=== PATIENT | female | born 1960 | race Caucasian/White ===

== ENCOUNTER 2016-11-26 08:22 | Day surgery (SDC) | payer OTHER ==
[~2016-11-26 08:22] MED LIST: ceFAZolin 1 GM VIAL ONE
[2016-11-26] MEDS ORDERED: SCOPOLAMINE PATCH TOP ONE (08:52)
[2016-11-26] MEDS ORDERED: LACTATED RINGERS 1,000 ML IV ONE ×2 (08:55→10:50)
[2016-11-26] MEDS ORDERED: PROPOFOL 200 MG/20 ML VIAL IVP ONE (10:00)
[2016-11-26] MEDS ORDERED: fentaNYL 250 MCG/5 ML VIAL IVP ONE (10:00)
[2016-11-26] MEDS ORDERED: LIDOCAINE-PF 2% 10 ML AMP SUBQ ONE (10:00)
[2016-11-26] MEDS ORDERED: ACETAMINOPHEN 1,000 MG/100 ML VIAL IV ONE (10:00)
[2016-11-26] MEDS ORDERED: GLYCOPYRROLATE 1 MG/5 ML VIAL IVP ONE (10:00)
[2016-11-26] MEDS ORDERED: DEXAMETHASONE 4 MG/ML VIAL IVP ONE (10:00)
[2016-11-26] MEDS ORDERED: NEOSTIGMINE 1 MG/1 ML 10 ML MDV IVP ONE (10:00)
[2016-11-26] MEDS ORDERED: ROCURONIUM 50 MG/5 ML VIAL IVP ONE (10:00)
[2016-11-26] MEDS ORDERED: ONDANSETRON 4 MG/2 ML VIAL IVP ONE (10:00)
[2016-11-26] MEDS ORDERED: MIDAZOLAM 2 MG/2 ML VIAL IVP ONE (10:00)
[2016-11-26] MEDS ORDERED: BUPIVACAINE 0.25%-EPI 1:200000 PF 30 ML VIAL SUBQ ONE ×2 (10:24)
[2016-11-26] MEDS ORDERED: LIDOCAINE 1% 50 ML MDV SUBQ ONE ×2 (10:24)
[2016-11-26] MEDS ORDERED: KETOROLAC 15 MG/ML VIAL ONE (11:09)
[2016-11-26] MEDS ORDERED: MEPERIDINE 50 MG/ML SYRINGE ONE (11:30)
== END 2016-11-26 08:23 | disposition home or self-care (01) ==
PROC: 06BY0ZC Excision of Hemorrhoidal Plexus, Open Approach (ICD-10-PCS; 2016-11-26)
PROC: 06LY0CC Occlusion of Hemorrhoidal Plexus with Extraluminal Device, Open Approach (ICD-10-PCS; principal; 2016-11-26 09:45)
DX: K64.4 Residual hemorrhoidal skin tags (principal); K64.8 Other hemorrhoids; Z88.5 Allergy status to narcotic agent
CPT/HCPCS: 46260; J3490; J7120

== ENCOUNTER 2016-12-28 10:31 | Outpatient (CLI) | payer OTHER | END 2016-12-28 10:32 | disposition home or self-care (01) | DX: M50.322 Other cervical disc degeneration at C5-C6 level (principal); M51.34 Other intervertebral disc degeneration, thoracic region; M51.36 Other intervertebral disc degeneration, lumbar region; M47.896 Other spondylosis, lumbar region; M41.86 Other forms of scoliosis, lumbar region ==

== ENCOUNTER 2017-05-13 10:09 | Outpatient (CLI) | payer OTHER ==
--- NOTE | 2017-05-13 12:57 | XRAY Report ---
THREE-VIEW LEFT WRIST: 05/13/2017 CLINICAL INDICATION: Pain after trauma. FINDINGS: AP, lateral, oblique views of the left wrist demonstrate a mildly displaced distal radial fracture, without definite intraarticular extension. No ulnar fracture is seen. Mild osteoarthritic changes are present. No foreign body is seen in the soft tissues. IMPRESSION: MILDLY DISPLACED DISTAL RADIAL FRACTURE, WITHOUT DEFINITE INTRAARTICULAR EXTENSION. JOB #: [id number] EXT JOB #:[id number]
== END 2017-05-13 10:10 | disposition home or self-care (01) ==
LOC: DI.S 10:09
PROVIDERS: ATTEND Nurse Practitioner Family
DX: S52.502A Unspecified fracture of the lower end of left radius, initial encounter for closed fracture (principal)

== ENCOUNTER 2017-06-17 08:46 | Outpatient (CLI) | payer OTHER ==
--- NOTE | 2017-06-18 11:15 | DEXA Report ---
DEXA SCAN: 06/17/2017 CLINICAL INDICATION: Wrist fracture, family history of osteopenia. TECHNIQUE: Dual energy x-ray absorptiometry (DXA) was performed on a [employer] system. Regions measured are the AP spine, femoral neck, and, if needed, forearm. COMPARISON: None. In accordance with the International Society for Clinical Densitometry (ISCD) guidelines, data from previous exams may be reanalyzed using current recommendations and techniques. This is done to allow a more accurate basis for comparison with the current study. FINDINGS The data for the lumbar spine is as follows: REGION BMD (g/cm/cm) T-SCORE Z-SCORE L1 0.816 -2.6 -1.9 L2 0.925 -2.3 -1.6 L3 1.014 -1.5 -0.8 L4 1.010 -1.6 -0.9 TOTAL 0.945 -2.0 -1.2 NOTE: All evaluable vertebrae are used for classification. The data for the hip is as follows: REGION BMD (g/cm/cm) T-SCORE Z-SCORE Neck 0.818 -1.6 -0.6 TOTAL 0.778 -1.8 -1.2 NOTE: The femoral neck or total proximal femur, whichever is lowest, is used for classification. IMPRESSION: THE WHO CLASSIFICATION BASED ON THE INTERNATIONAL REFERENCE STANDARD IS OSTEOPENIA. THE FRACTURE RISK IS INCREASED. RECOMMENDATION: Patients with diagnosis of osteoporosis or osteopenia should have regular bone mineral density assessment. For those eligible for Medicare, routine testing is allowed once every 2 years. Testing frequency can be increased for patients who have rapidly progressing disease or for those who are receiving medical therapy to restore bone mass. COMMENT: World Health Organization (WHO) definitions for osteoporosis and osteopenia: NORMAL BMD: T-score at -1.0 or higher, fracture risk is low. OSTEOPENIA BMD: T-score between -1.0 and -2.5, fracture risk is increased. OSTEOPOROSIS BMD: T-score at -2.5 or lower, fracture risk high. National Osteoporosis Foundation recommends: 1. Obtain adequate dietary calcium (at least 1200 mg per day) and vitamin D (400 -800 international units per day). 2. Participate, as appropriate, in regular weightbearing and muscle- strengthening exercise. 3. Avoid tobacco use and reduce alcohol and caffeine intake. 4. For more detailed information see the website at www.NOF.org. MTDD
== END 2017-06-17 08:47 | disposition home or self-care (01) ==
LOC: DI 08:46
PROVIDERS: ATTEND Nurse Practitioner Family
DX: M85.89 Other specified disorders of bone density and structure, multiple sites (principal); Z82.62 Family history of osteoporosis
CPT/HCPCS: 77080

== ENCOUNTER 2018-09-08 09:29 | Outpatient (CLI) | payer OTHER ==
--- NOTE | 2018-09-09 10:02 | Mammography Report ---
Reason: ANNUAL SCREENING Procedure Date: 09/08/2018 Accession Number: [id number] / [id number] Procedure: ELEN - Screening Mammo w/Clyde CPT Code: FULL RESULT: EXAM: Screening Mammo w/Clyde DATE: 09/08/2018 10:13 AM CLINICAL HISTORY: Screening encounter. History of late childbearing. Family history of breast cancer in a sister at the age of 49 and a cousin at the age of 50. TECHNIQUE: Bilateral CC, laterally exaggerated CC, MLO views were obtained. COMPARISON: 04/27/2014. FINDINGS: The breasts demonstrate heterogeneously dense fibroglandular parenchyma bilaterally. No suspicious masses, clustered microcalcifications, or regions of architectural distortion are identified. IMPRESSION: Negative examination RECOMMENDATION: Routine annual screening unless otherwise clinically indicated. BIRADS CATEGORY 1: Negative STANDARD QUALIFYING STATEMENTS: 1. This examination was not reviewed with the aid of Computer-Aided Detection (CAD). 2. A negative or benign imaging report should not preclude biopsy if clinically suspicious findings are present. 3. Dense breasts may obscure an underlying neoplasm. 4. This examination was reviewed with the aid of 3D breast imaging (tomosynthesis).
== END 2018-09-08 09:30 | disposition home or self-care (01) ==
LOC: DI 09:29
DX: Z12.31 Encounter for screening mammogram for malignant neoplasm of breast (principal); Z80.3 Family history of malignant neoplasm of breast
CPT/HCPCS: 77063; 77067

== ENCOUNTER 2019-09-04 09:15 | Outpatient (CLI) | payer OTHER ==
--- NOTE | 2019-09-04 11:30 | MRI Report ---
Reason: INTERNAL DERANGEMENT OF RT KNEE Procedure Date: 09/04/2019 Accession Number: [id number] / [id number] Procedure: MRI - Knee RT W/O CPT Code: Final Report FULL RESULT: EXAM: RIGHT KNEE MRI WITHOUT CONTRAST EXAM DATE: 09/04/2019 10:02 AM. CLINICAL HISTORY: INTERNAL DERANGEMENT OF RT KNEE. COMPARISON: None. TECHNIQUE: Multiplanar, multisequence T1-weighted and fluid-sensitive sequences of the knee without contrast. Other: None. FINDINGS: Bones and articular cartilage: There is an approximately 1.5 x 1.5 x 0.5 cm multilobular or multiseptated, T2 hyperintense, T1 hypointense, subcortical lesion at the anteromedial aspect of the medial tibial plateau. There is a similar-appearing, approximately 4.1 x 0.4 x 3 cm, extraosseous lesion along the anteromedial and anterior margin of the medial tibial plateau. Grade II-III chondromalacia at the medial tibial plateau. Grade II chondromalacia at the medial femoral condyle. Focal grade III chondromalacia of the medial ridge of the patella. Grade III chondromalacia of the femoral trochlea. No patellar subluxation. There is an approximately 1.3 x 0.4 x 1 cm lobular, T2 hyperintense, T1 hypointense subcortical lesion at the posterior aspect of the tibial plateau. No acute fracture. Medial Meniscus: Free edge fraying is present. No discrete tear. Lateral Meniscus: The lateral meniscus is intact. Cruciate Ligaments: The anterior and posterior cruciate ligaments are intact. Collateral Ligaments: The medial collateral and lateral collateral ligamentous structures are intact. Tendons: Small ganglion at the distal end of the semimembranosus tendon. The popliteus, quadriceps, patella tendon are unremarkable. Musculature: No edema or fatty atrophy. Other: No effusion. Tiny popliteal cyst. No loose bodies. The medial and lateral retinacula are intact. The subcutaneous tissues and fat pads are unremarkable. IMPRESSION: 1. 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 2. Multilobular or multiseptated subcortical lesion at the anterior medial aspect of the medial tibial plateau. There is a similar-appearing extraosseous lesion along the anteromedial and anterior margins of the medial tibial plateau. These lesions most likely represent ganglions. A vascular lesion or a mucinous lesion are thought to be less likely. If warranted, consider further evaluation with a follow-up MRI with intravenous contrast. 3. A 1.3 x 0.4 x 1 cm lobular subcortical lesion at the posterior aspect of the tibial plateau which most likely represents a ganglion. 4. Free edge fraying at the medial meniscus. 5. Small ganglion at the distal end of the semimembranosus tendon. 6. Tiny popliteal cyst. 7. No ligament tear. RADIA
== END 2019-09-04 09:16 | disposition home or self-care (01) ==
LOC: DI 09:15
PROVIDERS: ATTEND Orthopaedic Surgery
DX: M94.261 Chondromalacia, right knee (principal); M89.9 Disorder of bone, unspecified; M67.461 Ganglion, right knee; M71.21 Synovial cyst of popliteal space [Baker], right knee

== ENCOUNTER 2020-05-23 15:09 | Outpatient (CLI) | payer OTHER ==
--- NOTE | 2020-05-23 17:05 | XRAY Report ---
PROCEDURE: Knee 3 View RT INDICATIONS: PAIN IN RT KNEE TECHNIQUE: 3 views of the right knee(s) were acquired. COMPARISON: None. FINDINGS: Bones: No fractures or dislocations. No suspicious bony lesions. Trace medial compartment narrowin g. No erosions. Soft tissues: No joint effusion. No suspicious soft tissue calcifications. IMPRESSION: Trace early degenerative changes in the medial compartment suggestive early osteoarthrit is. Reviewed by: Leola Michaels MD on 05/23/2020 5:04 PM PDT Approved by: Leola Michaels MD on 05/23/2020 5:04 PM PDT Station ID: [id number]
--- NOTE | 2020-05-23 17:06 | XRAY Report ---
PROCEDURE: Lumbar Spine 2 View INDICATIONS: RT BACK PAIN TECHNIQUE: 3 views of the lumbar spine were acquired. COMPARISON: None. FINDINGS: Bones: 5 [id number] vertebrae are present. There is trace retrolisthesis of L1 on L2, L2 on L3 . There is severe disc space narrowing at L3-4, L5-S1, mild L1-L2, L4-5. Moderate to severe foraminal narrowing is present at L5-S1, moderate L3-4, L4-5. No vertebral body compression fractures. No kayleigh picious bony lesions. Soft tissues: Overlying bowel gas pattern is normal. No suspicious soft tissue calcifications. IMPRESSION: Degenerative changes most notable at L5-S1. Reviewed by: Leola Michaels MD on 05/23/2020 5:05 PM PDT Approved by: Leola Michaels MD on 05/23/2020 5:05 PM PDT Station ID: [id number]
--- NOTE | 2020-05-23 17:08 | XRAY Report ---
PROCEDURE: Hip w/Pelvis 2-3V RT INDICATIONS: RT HIP PAIN TECHNIQUE: AP pelvis with lateral view(s) of the bilateral hip(s). COMPARISON: None. FINDINGS: Bones: No fractures or dislocations. Pelvic ring appears intact. No suspicious bony lesions. Minimal early degenerative changes. Soft tissues: The visualized bowel gas pattern is normal. No suspicious soft tissue calcifications. IMPRESSION: No acute osseous abnormality. Reviewed by: Leola Michaels MD on 05/23/2020 5:06 PM PDT Approved by: Leola Michaels MD on 05/23/2020 5:06 PM PDT Station ID: [id number]
== END 2020-05-23 15:10 | disposition home or self-care (01) ==
LOC: DI.S 15:09
PROVIDERS: ATTEND Nurse Practitioner Family
DX: M47.817 Spondylosis without myelopathy or radiculopathy, lumbosacral region (principal); M17.11 Unilateral primary osteoarthritis, right knee; M25.551 Pain in right hip
CPT/HCPCS: 72100

== ENCOUNTER 2020-07-05 08:15 | Outpatient (CLI) | payer OTHER ==
--- NOTE | 2020-07-05 12:52 | MRI Report ---
PROCEDURE: Knee RT W/O INDICATIONS: TEAR LATERAL MENISCUS RT TECHNIQUE: Noncontrast sagittal PD fast spin echo and T2 fast spin echo with fat saturation, sagittal 3-D gradie nt sequence with fat saturation; coronal T1 spin echo and PD fast spin echo with fat saturation, and axial PD fast spin echo with fat saturation through the knee. COMPARISON: Plain films dated 05.23.20 FINDINGS: Image quality: Excellent. Menisci: Mildly displaced radial tear of the posterior horn medial meniscus at the meniscal root liga ment insertion site. Lateral meniscus intact. Cruciate ligaments: The anterior and posterior cruciat e ligaments appear intact. Medial structures: The medial collateral ligament appears intact. Visualized portions of the pes an serinus tendons appear normal. Small amount of medial bursal fluid. Lateral structures: The lateral collateral ligament demonstrates mild T2 signal elevation at the fem oral origin. The long and short heads of the biceps femoris tendon appear intact. The popliteus tend on appears normal. Iliotibial band appears normal. Anterior structures: The quadriceps and patellar tendons appear intact. Patellar alignment is kathleen l. No femoral trochlear dysplasia or ventral trochlear prominence. No edema in the infrapatellar fa t pad. Bones and cartilage: No bone marrow contusions or fractures. Mild degenerative marrow edema within t he anterior weightbearing aspects of the medial tibial plateau. Moderate articular cartilage loss dif fusely overlies the weightbearing aspects of the medial femoral condyle and medial tibial plateau. Mi ld articular cartilage loss diffusely overlies the weightbearing aspects of the lateral femoral condy le and lateral tibial plateau. Moderate articular cartilage loss overlies the patellar apex. Joint space: There is a small knee joint effusion and a small Mcgowan?s cyst. Normal appearing synovi al plicae are incidentally noted. IMPRESSION: 1. Tricompartment loss or arthritis with associated articular cartilage loss. 2. Medial meniscal tear. 3. Knee joint effusion and Mcgowan's cyst. 4. Low-grade partial-thickness lateral collateral ligament tear. 5. Medial bursitis. Reviewed by: Ellen Funk MD on 07/05/2020 12:51 PM PST Approved by: Ellen Funk MD on 07/05/2020 12:51 PM PST Station ID: [id number]
== END 2020-07-05 08:16 | disposition home or self-care (01) ==
LOC: DI 08:15
PROVIDERS: ATTEND Orthopaedic Surgery
DX: S83.281A Other tear of lateral meniscus, current injury, right knee, initial encounter (principal); S83.241A Other tear of medial meniscus, current injury, right knee, initial encounter; S83.421A Sprain of lateral collateral ligament of right knee, initial encounter; M17.11 Unilateral primary osteoarthritis, right knee; M70.51 Other bursitis of knee, right knee; M71.21 Synovial cyst of popliteal space [Baker], right knee

== ENCOUNTER 2020-07-20 15:07 | Outpatient (CLI) | payer OTHER ==
[2020-07-20 20:15] LABS: BASOPHILS % (AUTO) 0.5 %; EOSINOPHILS # (AUTO) 0.1 10^3/uL (0.0-0.7); EOSINOPHILS % (AUTO) 2.4 %; HGB - HEMOGLOBIN 11.3 g/dL (12.0-16.0); LYMPHOCYTES # (AUTO) 1.2 10^3/uL (1.5-3.5); LYMPHOCYTES % (AUTO) 28.1 %; MEAN CORPUSCULAR HEMOGLOBIN 30.6 pg (27.0-31.0); MEAN CORPUSCULAR HGB CONC 32.4 g/dL (32.0-36.0); MEAN CORPUSCULAR VOLUME 94.6 fL (81.0-99.0); MEAN PLATELET VOLUME 10.4 fL (7.9-10.8); MONOCYTES # (AUTO) 0.4 10^3/uL (0.0-1.0); MONOCYTES % (AUTO) 10.4 %; NEUTROPHILS # (AUTO) 2.5 10^3/uL (1.5-6.6); NEUTROPHILS % (AUTO) 58.4 %; PLT - PLATELET COUNT 201 10^3/uL (130-450); RED BLOOD COUNT 3.69 10^6/uL (4.20-5.40); RED CELL DISTRIBUTION WIDTH 13.1 % (12.0-15.0); WHITE BLOOD COUNT 4.2 x10^3/uL (4.8-10.8)
[2020-07-20 20:28] LABS: ALBUMIN 4.2 g/dL (3.2-5.5); ALBUMIN/GLOBULIN RATIO 1.4 (1.0-2.2); ALKALINE PHOSPHATASE 73 IU/L (42-121); ALT ALANINE AMINOTRANSFERASE 19 IU/L (10-60); AST ASPARTATE AMINOTRANSFERASE 26 IU/L (10-42); BILIRUBIN,TOTAL 1.1 mg/dL (0.2-1.0); BUN - BLOOD UREA NITROGEN 11 mg/dL (6-20); CALCIUM 9.4 mg/dL (8.5-10.3); CARBON DIOXIDE - CO2 28 mmol/L (21-32); CHLORIDE 103 mmol/L (101-111); CREATININE 0.7 mg/dL (0.4-1.0); GLUCOSE 93 mg/dL (70-100); SODIUM 139 mmol/L (135-145); TOTAL PROTEIN 7.1 g/dL (6.7-8.2)
[2020-07-20 20:37] LABS: T4 (THYROXINE) 7.11 ug/dL (6.09-12.23)
[2020-07-20 20:40] LABS: THYROID STIMULATING HORMONE 0.85 uIU/mL (0.34-5.60)
[2020-07-20 20:42] LABS: FREE T3 2.72 pg/mL (2.5-3.9); FREE T4 (FREE THYROXINE) 0.91 ng/dL (0.58-1.64)
[2020-07-20 20:48] LABS: CRP - C-REACTIVE PROTEIN < 1.0 mg/dL (0-1.0)
== END 2020-07-20 15:08 | disposition home or self-care (01) ==
LOC: LAB.S 15:07
PROVIDERS: ATTEND Nurse Practitioner Family
DX: R53.83 Other fatigue (principal); E55.9 Vitamin D deficiency, unspecified; M25.569 Pain in unspecified knee
CPT/HCPCS: 36415; 80053; 82306; 84436; 84439; 84443; 84481; 85025; 86140; 86376

== ENCOUNTER 2020-12-02 14:01 | Outpatient (CLI) | payer OTHER ==
[2020-12-02 20:00] LABS: BASOPHILS % (AUTO) 0.4 %; EOSINOPHILS # (AUTO) 0.2 10^3/uL (0.0-0.7); EOSINOPHILS % (AUTO) 3.5 %; HCT - HEMATOCRIT 36.9 % (37.0-47.0); HGB - HEMOGLOBIN 11.6 g/dL (12.0-16.0); LYMPHOCYTES # (AUTO) 1.2 10^3/uL (1.5-3.5); LYMPHOCYTES % (AUTO) 23.9 %; MEAN CORPUSCULAR HEMOGLOBIN 30.2 pg (27.0-31.0); MEAN CORPUSCULAR HGB CONC 31.4 g/dL (32.0-36.0); MEAN CORPUSCULAR VOLUME 96.1 fL (81.0-99.0); MEAN PLATELET VOLUME 10.5 fL (7.9-10.8); MONOCYTES # (AUTO) 0.5 10^3/uL (0.0-1.0); MONOCYTES % (AUTO) 10.1 %; NEUTROPHILS % (AUTO) 61.9 %; PLT - PLATELET COUNT 176 10^3/uL (130-450); RED BLOOD COUNT 3.84 10^6/uL (4.20-5.40); RED CELL DISTRIBUTION WIDTH 13.8 % (12.0-15.0); WHITE BLOOD COUNT 4.9 x10^3/uL (4.8-10.8)
[2020-12-02 20:20] LABS: % IRON SATURATION 20 % (20-50); IRON 75 ug/dL (28-170); TOTAL IRON BINDING CAPACITY 377 ug/dL (250-450); TRANSFERRIN 269 mg/dL (192-382)
== END 2020-12-02 14:02 | disposition home or self-care (01) ==
LOC: LAB.S 14:01
PROVIDERS: ATTEND Nurse Practitioner Family
DX: D64.9 Anemia, unspecified (principal); E67.3 Hypervitaminosis D; K52.89 Other specified noninfective gastroenteritis and colitis
CPT/HCPCS: 36415; 82306; 82728; 83540; 84466; 85025

== ENCOUNTER 2021-04-03 08:53 | Outpatient (CLI) | payer OTHER ==
--- NOTE | 2021-04-03 14:22 | Mammography Report ---
BILATERAL DIGITAL SCREENING MAMMOGRAM 3D/2D WITH EXAGGERATED CC: 04/03/2021 CLINICAL: Family history of breast cancer. Comparison is made to exams dated: 09/08/2018 mammogram and 04/27/2014 mammogram - [facility]. The tissue of both breasts is heterogeneously dense. This may lower the sensitivity of tiffany mography. No significant masses, calcifications, or other findings are seen in either breast. There has been no significant interval change. IMPRESSION: NEGATIVE There is no mammographic evidence of malignancy. A 1 year screening mammogram is recommended. This exam was interpreted at Station ID: [id number]. NOTE: For mammograms, a report in lay terms will be sent to the patient. Approximately 15% of breast malignancies will not be visualized mammographically. In the management of a palpable breast mass, a negative mammogram must not discourage biopsy of a clinically suspicious lesion. Electronically Signed By: Josue Murillo M.D. aty/penrad:04/03/2021 09:54:22 ACR BI-RADS Category 1: Negative 3341F PARENCHYMAL PATTERN: (D) - The breast(s) demonstrate(s) heterogeneously dense fibroglandular hood taylor. BI-RADS CATEGORY: (1) - 1 RECOMMENDATION: (ANNUAL) - Recommend routine annual screening mammography. [id number] 1 year screening LATERALITY: (B)
== END 2021-04-03 08:54 | disposition home or self-care (01) ==
LOC: DI.S 08:53
PROVIDERS: ATTEND Nurse Practitioner Family
DX: Z12.31 Encounter for screening mammogram for malignant neoplasm of breast (principal); Z80.3 Family history of malignant neoplasm of breast

== ENCOUNTER 2021-09-29 11:04 | Outpatient (CLI) | payer OTHER ==
--- NOTE | 2021-09-29 17:52 | Ultrasound Report ---
PROCEDURE: Pelvic w/Transvaginal INDICATIONS: PELVIC AND PERINEAL PAIN TECHNIQUE: Real-time scanning was performed of the pelvic organs, with image documentation. Additional endovagi nal scanning was necessary due to incomplete visualization of the adnexal and endometrial structures by transabdominal scanning. COMPARISON: None. FINDINGS: No pathologic free abdominal or pelvic fluid. Uterus: Uterus is normal in size at 7.6 x 2.3 x 3.6 cm. Uterus is anteverted. The endometrium measur es 1.7 mm in combined thickness. Uterus has normal echotexture. Ovaries: Right ovary measures 2.6 x 1.0 1.7 cm with total volume of 2.0 cc. Left ovary measures 2.7 x 0.8 x 1.5 cm with total volume of 1.7 cc. Ovaries are sonographically normal. IMPRESSION: 1. Uterus is sonographically normal. 2. Ovaries are sonographically normal. Reviewed by: Sonia Frost MD, PhD on 09/29/2021 5:51 PM PST Approved by: Sonia Frost MD, PhD on 09/29/2021 5:51 PM PST Station ID: [id number]
== END 2021-09-29 11:05 | disposition home or self-care (01) ==
LOC: DI 11:04
PROVIDERS: ATTEND Nurse Practitioner Family
DX: R10.2 Pelvic and perineal pain (principal)

== ENCOUNTER 2022-02-22 13:56 | Outpatient (CLI) | payer OTHER ==
--- NOTE | 2022-02-22 16:32 | MRI Report ---
PROCEDURE: Lumbar Spine W/O INDICATIONS: LUMBAR RADCULOPATHY TECHNIQUE: Noncontrast sagittal T1 spin echo and T2 fast echo, sagittal STIR, axial T1 and T2 fast spin echo thr ough the lumbar spine. In cases with scoliosis, additional coronal T2 fast spin echo may be performe d. COMPARISON: Lumbar spine x-rays 12/07/2021 and 12/28/2016.. FINDINGS: Image quality: Excellent. Alignment and Curvature: There is normal bony alignment. Mild convex left scoliosis of the lower leopoldo mbar spine. Bone Marrow: Modic type I reactive endplate changes noted adjacent to the L4-L5 and L5-S1 discs. Jefry gn, intraosseous hemangioma is noted in the T11, T12, L1, L2 and L3 vertebral bodies. No acute verteb ral body compression fractures. Spinal Cord: Conus medullaris terminates at the L1 level. Visualized cord demonstrates normal signa l and size. Paraspinous Soft Tissues: No paravertebral masses. T12-L1: Loss of disc signal. No central stenosis. No neural foraminal narrowing. No neural compressi on. L1-L2: Loss of disc signal. Mild, diffuse disc bulge. No central stenosis. No neural foraminal bryan rowing. No neural compression. L2-L3: Loss of disc signal. Mild, diffuse disc bulge. Mild bilateral facet hypertrophy. Mild narro wing of the central canal. No neural foraminal narrowing. No neural compression. L3-L4: Loss of disc signal and height. Mild to moderate diffuse disc bulge. Small right central/rig ht foraminal disc protrusion. Mild bilateral facet hypertrophy. Mild narrowing of the central canal. Mild to moderate right neural foraminal narrowing. No neural compression. L4-L5: Loss of disc signal. Mild, diffuse disc bulge. Mild bilateral facet hypertrophy. Mild narrow ing of the central canal. Mild right and [id number] left neural foraminal narrowing. No neural compression. L5-S1: Loss of disc signal and height. Mild bilateral facet hypertrophy. No central stenosis. No ne ural foraminal narrowing. No neural compression. IMPRESSION: 1. Multilevel degenerative disc disease. 2. Multilevel facet arthropathy. 3. No severe central canal narrowing. 4. No severe neural foraminal narrowing. 5. No neural compression. Reviewed by: Sonia Frost MD, PhD on 02/22/2022 4:30 PM PDT Approved by: Sonia Frost MD, PhD on 02/22/2022 4:30 PM PDT Station ID: [id number]
== END 2022-02-22 13:57 | disposition home or self-care (01) ==
LOC: DI 13:56
DX: M47.26 Other spondylosis with radiculopathy, lumbar region (principal); M51.26 Other intervertebral disc displacement, lumbar region; M47.27 Other spondylosis with radiculopathy, lumbosacral region

== ENCOUNTER 2022-10-19 10:47 | Outpatient (CLI) | payer BC ==
--- NOTE | 2022-10-19 11:51 | DEXA Report ---
PROCEDURE: Dexa Spine and/or Hip INDICATIONS: OSTEOPENIA TECHNIQUE: Dual energy x-ray absorptiometry (DXA) was performed on a [employer] System. Regions measur ed are the AP Spine, femoral neck, and if needed forearm. COMPARISON: DEXA 06/17/2017. FINDINGS: Lumbar Spine: Bone Mineral Density 0.964 g/cm/cm,T score -1.8, osteopenia. Left Femoral Neck: Bone Mineral Density 0.789 g/cm/cm, T score -1.8, osteopenia. Left Hip: Bone Mineral Density 0.726 g/cm/cm,T score -2.2, osteopenia. (T score greater or equal to -1.0: NORMAL) (T score from -1.1 to -2.4: OSTEOPENIA) (T score less than or equal to -2.5 to: OSTEOPOROSIS) Impression: Bone mineral density within the osteopenia range with associated increased fracture risk. Bone minera l density appears to have mildly decreased at the left hip/femur and is similar to minimally increase d at the lumbar spine when compared to the prior exam from 06/17/2017. Patients with diagnosis of osteoporosis or osteopenia should have regular bone mineral density assess ment. For those eligible for Medicare, routine testing is allowed once every 2 years. Testing frequ ency can be increased for patients who have rapidly progressing disease or for those who are receivin g medical therapy to restore bone mass. Reviewed by: Amor Copeland MD on 10/19/2022 11:50 AM PST Approved by: Amor Copeland MD on 10/19/2022 11:50 AM PST Station ID: [id number]
== END 2022-10-19 10:48 | disposition home or self-care (01) ==
LOC: DI 10:47
PROVIDERS: ATTEND Nurse Practitioner Family
DX: M85.89 Other specified disorders of bone density and structure, multiple sites (principal)

== ENCOUNTER 2022-10-19 10:48 | Outpatient (CLI) | payer BC ==
--- NOTE | 2022-10-22 09:57 | Mammography Report ---
BILATERAL DIGITAL SCREENING MAMMOGRAM 3D/2D: 10/19/2022 CLINICAL: Routine screening. Comparison is made to exams dated: 04/03/2021 mammogram, 09/08/2018 mammogram, and 04/27/2014 mammogram - [facility]. Both breasts are heterogeneously dense, which may obscure small masses (category c / 51-75% glandular tissue). No significant masses, calcifications, or other findings are seen in either breast. There has been no significant interval change. IMPRESSION: NEGATIVE There is no mammographic evidence of malignancy. A 1 year screening mammogram is recommended. Based on the Tyrer Cuzick model (a risk assessment model) the patients lifetime risk is 13.4% and he r 10 year risk is 5.5%. According to the ACR, ACS, and NCCN guidelines, an annual breast MRI exam liz ng with mammogram is recommended if the patients lifetime risk is 20% or greater. This exam was interpreted at Station ID: [id number]. NOTE: For mammograms, a report in lay terms will be sent to the patient. Approximately 15% of breast malignancies will not be visualized mammographically. In the management of a palpable breast mass, a negative mammogram must not discourage biopsy of a clinically suspicious lesion. Electronically Signed By: Josue vences/catherine:10/19/2022 12:34:41 letter sent: No_Letter ACR BI-RADS Category 1: Negative 3341F PARENCHYMAL PATTERN: (D) - The breast(s) demonstrate(s) heterogeneously dense fibroglandular hood taylor. BI-RADS CATEGORY: (1) - 1 RECOMMENDATION: (ANNUAL) - Recommend routine annual screening mammography. [id number] 1 year screening LATERALITY: (B)
== END 2022-10-19 10:49 | disposition home or self-care (01) ==
LOC: DI 10:48
PROVIDERS: ATTEND Nurse Practitioner Family
DX: Z12.31 Encounter for screening mammogram for malignant neoplasm of breast (principal)

== ENCOUNTER 2022-12-24 06:29 | Day surgery (SDC) | payer BC ==
[2022-12-24] MEDS ORDERED: LACTATED RINGERS 1,000 ML IV ONE ×2 (06:35→08:37)
--- NOTE | 2022-12-24 07:08 | ANESTHESIA ---
Pre-Anesthesia VS, & Labs - Diagnosis screening, hemorrhoids - Procedure colonoscopy, hemorrhoid banding Vital Signs: Temp Pulse Resp BP Pulse Ox O2 Flow Rate 36.0 C L 38 L 14 133/62 H 100 12/24/22 06:35 12/24/22 06:35 12/24/22 06:35 12/24/22 06:35 12/24/22 06:35 Height: 5 ft 5 in Weight (kg): 65 kg Body Mass Index: 23.8 BMI Classification: Normal - NPO >8 hours Last Fluid Intake: am prep - Is Patient ?: No - Lab Results Lab results reviewed: Yes Home Medications and Allergies Bacillus Coagulans [Probiotic] 1 each PO DAILY 11/22/16 Cholecalciferol (Vitamin D3) [Vitamin D3] 4,000 unit PO ONCE 11/22/16 L'Glutamine 1 ea PO DAILY 11/22/16 Ibuprofen 400 mg PO ONCE 11/26/16 Allergies/Adverse Reactions: Allergies Allergy/AdvReac Type Severity Reaction Status Date / Time codeine AdvReac Anxiety Verified 12/21/22 13:46 hydromorphone AdvReac Anxiety Verified 12/21/22 13:46 tramadol AdvReac Anxiety Verified 12/21/22 13:46 Anes History & Medical History - Anesthetic History Anesthesia Complications: reports: No previous complications Family history of Anesthesia Complications: Denies Family history of Malignant Hyperthermia: Denies - Medical History Cardiovascular: reports: Arrhythmia Pulmonary: reports: None Gastrointestinal: reports: Hemorrhoids, Other Urinary: reports: None Musculoskeletal: reports: Osteoarthritis, Other Endocrine/Autoimmune: reports: None Skin: reports: Rosacea - Surgical History General: reports: Colonoscopy, Other Gynecologic: reports: Dilation and currettage Orthopedic: reports: Knee replacement Exam General: Alert, Oriented x3, Cooperative Dental: WNL Mouth Openin Fingerbreadth Neck Mobility: Normal Mallampati classification: II Thyromental Distance: 4-6 cm Respiratory: Lungs clear, Normal breath sounds, No respiratory distress Cardiovascular: Other (endy) Mental/Cognitive Status: Alert/Oriented X3, Normal for patient Cognitive Status: Within normal limits Plan Anesthesia Type: Total IV Consent for Procedure(s) Verified and Reviewed: Yes Code Status: Attempt Resuscitation ASA classification: 2-Mild systemic disease Is this case an emergency?: No
[2022-12-24] MEDS ORDERED: LACTATED RINGERS 200 ML IV ONE (08:15)
[2022-12-24 09:09] VITALS: BP 118/61
--- NOTE | 2022-12-24 09:32 | ANESTHESIA POST OP EVALUATION ---
Anesthesia Post Eval - Post Anesthesia Eval Vitals: Last Vital Signs Temp 36 C L 12/24/22 08:50 Pulse 43 L 12/24/22 08:50 Resp 18 12/24/22 08:50 BP 118/61 12/24/22 08:50 Pulse Ox 99 12/24/22 08:50 O2 Flow Rate CV Function Including HR & BP: Stable Pain Control: Satisfactory Nausea & Vomiting: Negative Mental Status: Baseline Respiratory Status: Airway Patent Hydration Status: Satisfactory Anesthesia Complications: None
== END 2022-12-24 06:30 | disposition home or self-care (01) ==
LOC: SDS 06:29
PROVIDERS: ATTEND Surgery
DX: Z12.11 Encounter for screening for malignant neoplasm of colon (principal); K64.9 Unspecified hemorrhoids
CPT/HCPCS: 45378; J7120

== ENCOUNTER 2023-04-05 08:00 | Outpatient (CLI) | payer BC ==
[2023-04-05 20:59] LABS: BILIRUBIN,URINE NEGATIVE (NEGATIVE); GLUCOSE, URINE (UA) NEGATIVE (NEGATIVE); KETONES,URINE (UA) NEGATIVE (NEGATIVE); LEUKOCYTE ESTERASE, URINE NEGATIVE (NEGATIVE); NITRITE,URINE NEGATIVE (NEGATIVE); OCCULT BLOOD,URINE NEGATIVE (NEGATIVE); PH,URINE 6.5 PH (5.0-7.5); PROTEIN,URINE NEGATIVE (NEGATIVE); UROBILINOGEN,URINE 0.2 (NORMAL) E.U./dL (NORMAL)
[2023-04-05 21:02] LABS: CLARITY,URINE CLEAR (CLEAR)
[2023-04-05 21:10] LABS: BACTERIA,URINE None Seen /HPF (None Seen); RBC,URINE 0-5 /HPF (0-5); SQUAMOUS EPITHELIAL CELL,UR RARE Squamous (<= Few); WBC,URINE 0-3 /HPF (0-5)
== END 2023-04-05 23:59 | disposition home or self-care (01) ==
LOC: LAB 08:00
PROVIDERS: ATTEND Emergency Medicine
DX: R39.15 Urgency of urination (principal)
CPT/HCPCS: 81001; 87086

== ENCOUNTER 2023-05-17 15:47 | Outpatient (CLI) | payer BC ==
--- NOTE | 2023-05-17 17:04 | Ultrasound Report ---
PROCEDURE: Pelvic w/Transvaginal INDICATIONS: SUPRA PUBIC PAIN TECHNIQUE: Real-time scanning was performed of the pelvic organs, with image documentation. Additional endovagi nal scanning was necessary due to incomplete visualization of the adnexal and endometrial structures by transabdominal scanning. COMPARISON: 09/29/2019. FINDINGS: Uterus: Uterus is anteverted and normal in size at 4.9 x 2.1 x 3.3 cm. The myometrium is heterogene ous. The endometrium measures 2 mm in combined thickness. Mid to low uterine segment, intramural fi broid measuring 1.5 x 1.7 x 1.4 cm. This presumably measured 1.0 x 1.1 cm. Ovaries: The right ovary measures 1.4 x 1.2 x 0.8 cm, with a calculated ovarian volume of 1 cc. The left ovary measures 1.8 x 1.4 x 1.5 cm, with a calculated ovarian volume of 2 cc. Left ovary cystic lesion measuring 0.7 x 1.0 x 0.5 cm. Other: No pathologic free abdominal or pelvic fluid. IMPRESSION: Hypoattenuating mass within the lower uterine segment/cervix measuring 1.5 x 1.7 x 1.4 cm, presumably a fibroid. This has a similar appearance to the previous exam. Left ovarian cystic lesion measuring 1 cm, without suspicious features. O-RADS 2. Consider yearly fol low-up with ultrasound. Reviewed by: Ajay Garcia on 05/17/2023 5:03 PM PDT Approved by: Ajay Garcia on 05/17/2023 5:03 PM PDT Station ID: [id number]
== END 2023-05-17 15:48 | disposition home or self-care (01) ==
LOC: DI 15:47
PROVIDERS: ATTEND Nurse Practitioner Family
DX: N83.202 Unspecified ovarian cyst, left side (principal); N85.8 Other specified noninflammatory disorders of uterus

== ENCOUNTER 2024-01-20 09:52 | Outpatient (CLI) | payer BC ==
[2024-01-20 15:12] LABS: BASOPHILS % (AUTO) 0.5 %; EOSINOPHILS # (AUTO) 0.1 10^3/uL (0.0-0.7); EOSINOPHILS % (AUTO) 2.9 %; HCT - HEMATOCRIT 40.5 % (37.0-47.0); HGB - HEMOGLOBIN 12.7 g/dL (12.0-16.0); LYMPHOCYTES # (AUTO) 1.1 10^3/uL (1.5-3.5); LYMPHOCYTES % (AUTO) 24.1 %; MEAN CORPUSCULAR HEMOGLOBIN 28.9 pg (27.0-31.0); MEAN CORPUSCULAR HGB CONC 31.4 g/dL (32.0-36.0); MEAN CORPUSCULAR VOLUME 92.3 fL (81.0-99.0); MEAN PLATELET VOLUME 10.5 fL (7.9-10.8); MONOCYTES # (AUTO) 0.5 10^3/uL (0.0-1.0); MONOCYTES % (AUTO) 10.4 %; NEUTROPHILS # (AUTO) 2.8 10^3/uL (1.5-6.6); NEUTROPHILS % (AUTO) 61.9 %; PLT - PLATELET COUNT 217 10^3/uL (130-450); RED BLOOD COUNT 4.39 10^6/uL (4.20-5.40); RED CELL DISTRIBUTION WIDTH 13.8 % (12.0-15.0); WHITE BLOOD COUNT 4.4 x10^3/uL (4.8-10.8)
[2024-01-20 15:46] LABS: ALBUMIN 4.6 g/dL (3.2-5.5); ALBUMIN/GLOBULIN RATIO 1.5 (1.0-2.2); BILIRUBIN,TOTAL 0.9 mg/dL (0.2-1.0); CALCIUM 10.2 mg/dL (8.5-10.3); CREATININE 0.8 mg/dL (0.6-1.3); POTASSIUM 4.3 mmol/L (3.5-4.5); TOTAL PROTEIN 7.6 g/dL (6.4-8.9)
== END 2024-01-20 09:53 | disposition home or self-care (01) ==
LOC: LAB.S 09:52
PROVIDERS: ATTEND Registered Nurse
DX: R11.2 Nausea with vomiting, unspecified (principal); R10.9 Unspecified abdominal pain
CPT/HCPCS: 36415; 80053; 83690; 85025

== ENCOUNTER 2024-01-29 08:58 | Outpatient (CLI) | payer BC ==
[2024-01-29 15:19] LABS: BASOPHILS % (AUTO) 0.6 %; EOSINOPHILS # (AUTO) 0.2 10^3/uL (0.0-0.7); HCT - HEMATOCRIT 39.4 % (37.0-47.0); HGB - HEMOGLOBIN 12.2 g/dL (12.0-16.0); MEAN CORPUSCULAR HEMOGLOBIN 28.4 pg (27.0-31.0); MEAN CORPUSCULAR VOLUME 91.8 fL (81.0-99.0); MEAN PLATELET VOLUME 10.9 fL (7.9-10.8); MONOCYTES # (AUTO) 0.6 10^3/uL (0.0-1.0); MONOCYTES % (AUTO) 11.1 %; NEUTROPHILS # (AUTO) 3.3 10^3/uL (1.5-6.6); NEUTROPHILS % (AUTO) 66.1 %; PLT - PLATELET COUNT 192 10^3/uL (130-450); RED BLOOD COUNT 4.29 10^6/uL (4.20-5.40); RED CELL DISTRIBUTION WIDTH 13.8 % (12.0-15.0)
[2024-01-29 15:34] LABS: ALBUMIN 4.5 g/dL (3.2-5.5); ALBUMIN/GLOBULIN RATIO 1.6 (1.0-2.2); CALCIUM 10.2 mg/dL (8.5-10.3); CREATININE 0.8 mg/dL (0.6-1.3); TOTAL PROTEIN 7.3 g/dL (6.4-8.9)
[2024-01-29 15:40] LABS: TROPONIN I HIGH SENSITIVITY 4.2 ng/L (2.3-14.8)
[2024-01-29 15:50] LABS: THYROID STIMULATING HORMONE 1.19 uIU/mL (0.34-5.60)
== END 2024-01-29 08:59 | disposition home or self-care (01) ==
LOC: LAB.S 08:58
PROVIDERS: ATTEND Registered Nurse
DX: R10.13 Epigastric pain (principal); R19.00 Intra-abdominal and pelvic swelling, mass and lump, unspecified site; H93.A3 Pulsatile tinnitus, bilateral; R20.2 Paresthesia of skin; R07.89 Other chest pain
CPT/HCPCS: 36415; 80053; 84443; 84484; 85025

== ENCOUNTER 2024-02-07 15:29 | Outpatient (CLI) | payer BC ==
--- NOTE | 2024-02-07 17:10 | Ultrasound Report ---
PROCEDURE: Carotid Doppler Complete INDICATIONS: BILATERAL PULSATILE TINNITUS, PULSATILE ABD MASS TECHNIQUE: Color and pulse Doppler interrogation was performed of both carotid systems, with image documentation and velocity measurements. COMPARISON: None. FINDINGS: Right side: Brachial blood pressure: 100/61 mm Hg. Common carotid artery peak systolic velocity: 76 cm/sec. Internal carotid artery peak systolic velocity: 104 cm/sec. Internal carotid artery end diastolic velocity: 43 cm/sec. External carotid artery peak systolic velocity: 93 cm/sec. ICA/CCA peak systolic ratio: 1.3 Katz scale imaging description: Mild atherosclerotic plaque. Percent internal carotid artery stenosis: Less than 50 percent stenosis. Vertebral artery: Flow direction is antegrade. Left side: Brachial blood pressure: 96/55 mm Hg. Common carotid artery peak systolic velocity: 68 cm/sec. Internal carotid artery peak systolic velocity: 107 cm/sec. Internal carotid artery end diastolic velocity: 52 cm/sec. External carotid artery peak systolic velocity: 69 cm/sec. ICA/CCA peak systolic ratio: 1.5. Katz scale imaging description: Mild atherosclerotic plaque. Percent internal carotid artery stenosis: Less than 50 percent stenosis. Vertebral artery: Flow direction is antegrade. IMPRESSION: 1. In the right internal carotid artery, there is less than 50 percent stenosis based on peak systoli c velocity criteria. 2. In the left internal carotid artery, there is less than 50 percent stenosis based on peak systolic velocity criteria. 3. Antegrade blood flow within the right vertebral artery. 4. Antegrade blood flow within the left vertebral artery. The estimate of stenosis included in the report of the imaging study was calculated using the [facility]-end orsed standards of carotid artery stenosis. Reviewed by: Anthony Galeano MD on 02/07/2024 5:09 PM PDT Approved by: Anthony Galeano MD on 02/07/2024 5:09 PM PDT Station ID: [id number]
--- NOTE | 2024-02-11 09:44 | Ultrasound Report ---
PROCEDURE: Aorta Duplex Limited INDICATIONS: BILATERAL PULSATILE TINNITUS, PULSATILE ABD MASS TECHNIQUE: Limited exam of abdominal aorta and common iliac arteries. COMPARISON: Ultrasound abdomen, 08/21/2016. FINDINGS: Abdominal aorta: Proximal abdominal aorta: 2.2 x 2.0 cm. Peak systolic velocity 130 cm/s. Mid abdominal aorta: 2.2 x 2.2 cm. Peak systolic velocity 65 cm/s. Distal abdominal aorta: 1.5 x 2.2 cm. Peak systolic velocity 53 cm/s. Common iliac arteries: Right common iliac artery: 1.1 x 1.3 cm. Peak systolic velocity 85 cm/s. Left common iliac artery: 1.2 x 1.0 cm. Peak systolic velocity 122 cm/s. IMPRESSION: 1. No abdominal aortic aneurysm. Reviewed by: Cesar Tiwari MD on 02/11/2024 8:42 AM [facility] Approved by: Cesar Tiwari MD on 02/11/2024 8:42 AM [facility] Station ID: [id number]
== END 2024-02-07 15:30 | disposition home or self-care (01) ==
LOC: DI 15:29
PROVIDERS: ATTEND Registered Nurse
DX: I65.23 Occlusion and stenosis of bilateral carotid arteries (principal); R19.00 Intra-abdominal and pelvic swelling, mass and lump, unspecified site; H93.A3 Pulsatile tinnitus, bilateral; R20.2 Paresthesia of skin; R10.13 Epigastric pain; R07.89 Other chest pain; R10.9 Unspecified abdominal pain
CPT/HCPCS: 93880; 93979

== ENCOUNTER 2024-05-27 09:45 | Outpatient (CLI) | payer BC ==
--- NOTE | 2024-05-28 10:50 | Mammography Report ---
BILATERAL DIGITAL SCREENING MAMMOGRAM 3D/2D: 05/27/2024 CLINICAL: Routine screening. Family history of breast cancer. Comparison is made to exams dated: 10/19/2022 mammogram, 04/03/2021 mammogram, 09/08/2018 mammogram, and 04/27/2014 mammogram - [facility]. The breasts are heterogeneously dense, which may obscure small masses (category c / 51-75% glandular tissue). No significant masses, calcifications, or other findings are seen in either breast. There has been no significant interval change. IMPRESSION: NEGATIVE There is no mammographic evidence of malignancy. A 1 year screening mammogram is recommended. Based on the Tyrer Cuzick model (a risk assessment model) the patient's lifetime risk is 12.8% and he r 10 year risk is 5.7%. According to the ACR, ACS, and NCCN guidelines, an annual breast MRI exam liz ng with mammogram is recommended if the patient's lifetime risk is 20% or greater. This exam was interpreted at Station ID: [id number]. NOTE: For mammograms, a report in lay terms will be sent to the patient. Approximately 15% of breast malignancies will not be visualized mammographically. In the management of a palpable breast mass, a negative mammogram must not discourage biopsy of a clinically suspicious lesion. Electronically Signed By: Anthony linares/catherine:05/27/2024 11:55:43 letter sent: No_Letter ACR BI-RADS Category 1: Negative PARENCHYMAL PATTERN: (D) - The breast(s) demonstrate(s) heterogeneously dense fibroglandular hood taylor. BI-RADS CATEGORY: (1) - 1 RECOMMENDATION: (ANNUAL) - Recommend routine annual screening mammography. [id number] 1 year screening LATERALITY: (B)
== END 2024-05-27 09:46 | disposition home or self-care (01) ==
LOC: DI.S 09:45
PROVIDERS: ATTEND Nurse Practitioner Family
DX: Z12.31 Encounter for screening mammogram for malignant neoplasm of breast (principal); R92.333 Mammographic heterogeneous density, bilateral breasts; Z80.3 Family history of malignant neoplasm of breast